=== PATIENT | female | born 1965 | race Caucasian/White ===

== ENCOUNTER → 2016-11-07 | Outpatient (CLI) | payer OTHER ==
--- NOTE | 2016-11-07 13:31 | MA ---
Right Diagnostic Digital Mammogram With iCAD Clinical Indications: Focal asymmetry on recent screening mammogram. Technique: Digital spot compression CC, spot mediolateral oblique and true lateral views. This exami nation was processed by the iCAD computer-aided detection system. Comparison: Recent mammogram. 2015, 2014, 2013. Breast Density: 3, 50-75%. Findings: In the upper outer quadrant of the right breast, there is a persistent focal asymmetry aisha uring 11 mm which persists and therefore additional imaging with ultrasound is recommended. This is a pproximately at the 10 o'clock position 10 cm from the nipple. Impression: 1. Persistent focal asymmetry upper outer quadrant right breast approximately 11 mm. 2. ACR BI-RADS 0: Needs further imaging. Recommendation: Ultrasound of the upper outer quadrant of right breast which will be subsequently per formed. Please see ultrasound report and recommendations. Findings and recommendations have been discussed with the patient who agrees with the plan. The patient's information is entered into a reminder system with a target due date for her next mammo gram.
--- NOTE | 2016-11-07 14:37 | US ---
Ultrasound Right Breast History: Nodular density upper-outer quadrant right breast 10 o'clock position measuring approximatel y 10 mm. Comparison: Today's recent mammogram, prior mammograms. Technique: Ultrasound imaging of the upper-outer quadrant of the right breast from the 9 to the 12 o' clock position was performed by the brake tester and me. Findings: In the right breast at the 10 o'clock to the 10:30 position, there is a cluster of simple c ysts measuring 10 x 4 mm which is just inferomedial to a benign intramammary lymph node measuring trang roximately 8 x 6 mm which corresponds to the mammographic findings. No additional suspicious findings in the upper-outer quadrant of the right breast. Dr. Aden Cope agrees with findings and recommendations. Impressions 1. BI-RADS 2: Benign findings. 2. Cluster of simple cysts which corresponds to the mammographic finding and an adjacent benign lymph node. No suspicious findings. 3. No suspicious findings upper-outer quadrant right breast. 4. Recommend annual mammograms with next mammogram in October 2017. Findings and recommendations have been discussed with the patient who agrees with the plan. Cosign: Dr. Aden Cope.
== END ==
LOC: CIMAGING 12:36
DX: N60.11 Diffuse cystic mastopathy of right breast (principal)
CPT/HCPCS: 76641-PO; G0206

== ENCOUNTER → 2017-11-03 | Outpatient (CLI) | payer OTHER | LOC: CIMAGING 10:14 | PROVIDERS: ATTEND Family Medicine | DX: Z12.31 Encounter for screening mammogram for malignant neoplasm of breast (principal) ==

== ENCOUNTER → 2018-12-06 | Outpatient (CLI) | payer OTHER | LOC: CIMAGING 14:59 | PROVIDERS: ATTEND Family Medicine | DX: Z12.31 Encounter for screening mammogram for malignant neoplasm of breast (principal) ==